=== PATIENT | female | born 1960 | race Caucasian/White ===

== ENCOUNTER 2018-06-10 20:09 | Emergency (ER) | payer BC, OTHER ==
[2018-06-10] MEDS ORDERED: TRIMETHOPRIM/SULFAMETHOX (DS) TAB PO (22:00)
[2018-06-10] MEDS ORDERED: LIDOCAINE 1%/EPI (MDV) 50 ML INJ INJ (22:00)
[2018-06-10] MEDS ORDERED: CEPHALEXIN 500 MG CAP PO (22:00)
[2018-06-10] MEDS: CLINDAMYCIN 600 MG INJ IM (22:51)
== END 2018-06-10 23:03 | disposition home or self-care (01) ==
LOC: FTE 20:09
DX: L02.811 Cutaneous abscess of head [any part, except face] (principal)
CPT/HCPCS: 96372; 99284-25